=== PATIENT | female | born 1980 | race Caucasian/White ===

== ENCOUNTER 2017-06-22 13:34 | Emergency (ER) | payer OTHER ==
[~2017-06-22] VITALS: Ht 165.1 cm; Wt 58.8 kg
[2017-06-22 13:59] LABS: HEMATOCRIT 42.5 % (36.0-46.0); MCH 29.7 PG (29.0-34.0); MCHC 34.4 G/DL (30.0-36.0); MCV 86.4 FL (83-99); MEAN PLAT.VOLUME 8.4 uM^3 (9.5-12.4); PLATELET COUNT 412 K/uL (156-360); RBC DIS.WIDTH-SD 38.4 % (39-53); RED BLOOD COUNT 4.92 M/uL (3.80-5.20); WHITE BLOOD COUNT 8.2 K/uL (4.1-10.2)
[2017-06-22 14:00] LABS: ADD MIUA? YES; BILIRUBIN NEGATIVE; BLOOD NEGATIVE; COLOR YELLOW ((YELLOW)); GLUCOSE (STRIP) NEGATIVE; KETONES NEGATIVE; LEUKOCYTES NEGATIVE; NITRITE NEGATIVE; PROTEIN (STRIP) 30; SPECIFIC GRAVITY 1.026 (1.000-1.030)
[2017-06-22 14:10] LABS: CHLORIDE 105 mEq/L (99-109); POTASSIUM 3.8 mEq/L (3.7-5.4); SODIUM 137 mEq/L (136-147)
[2017-06-22 14:12] LABS: GLUCOSE 97 mg/dL (70-99)
[2017-06-22 14:13] LABS: ANION GAP 7 MEQ/L (2-14)
[2017-06-22 14:14] LABS: TOTAL BILIRUBIN 0.9 mg/dL (0.0-1.0)
[2017-06-22 14:15] LABS: ALKALINE PHOSPHATASE 57 IU/L (3-129)
[2017-06-22 14:17] LABS: UREA NITROGEN (BUN) 21 mg/dL (9-23)
[2017-06-22 14:18] LABS: BACTERIA 2+ /HPF; CASTS NONE SEEN /LPF; CRYSTALS NONE SEEN; EPITHELIAL CELLS 1+ /HPF; MUCUS 2+ /LPF; RED BLOOD CELLS 0-5 /HPF (0-5); UCUL ADDED? YES; WHITE BLOOD CELLS 0-5 /HPF (0-5)
[2017-06-22 14:19] LABS: GFR ESTIMATE (CALCULATED) > 59 mL/min/
[2017-06-22 14:25] LABS: QUANTITATIVE HCG < 4.0 MIU/ML
[2017-06-22] MEDS ORDERED: BENTYL20 MG PO (17:01)
[2017-06-22] MEDS ORDERED: ZOFRAN ODT8 MG PO (17:01)
[2017-06-22 17:19] VITALS: BP 115/78
== END 2017-06-22 17:30 | disposition home or self-care (01) ==
LOC: EME 13:34
DX: R10.13 Epigastric pain (principal); K90.41 Non-celiac gluten sensitivity; F32.9 Major depressive disorder, single episode, unspecified; F41.9 Anxiety disorder, unspecified; F17.200 Nicotine dependence, unspecified, uncomplicated
CPT/HCPCS: 80053; 81003; 84702; 85027; 87086; 99281; 99282